=== PATIENT | female | born 1945 | race Caucasian/White ===

== ENCOUNTER 2020-06-03 07:49 | Emergency (ER) | payer OTHER ==
[~2020-06-03 07:49] MED LIST: ASPIRIN EC81 MG PO; LOPRESSOR 25 MG25 MG PO
[2020-06-03 08:41] LABS: HEMOGLOBIN 12.6 gm/dl (12.3-15.3); RED BLOOD COUNT 4.03 M/UL (4.00-5.10); WHITE BLOOD COUNT 11.2 K/UL (4.5-11.0)
[2020-06-03 09:25] LABS: BUN/CREATININE RATIO 19 (0-10)
[2020-06-03] MEDS ORDERED: MORGIDOX100 MG PO (11:38)
[2020-06-03] MEDS ORDERED: FLAGYL500 MG PO (11:38)
== END 2020-06-03 12:34 | disposition home or self-care (01) ==
LOC: ER1 07:49
PROVIDERS: Family Medicine
DX: K57.32 Diverticulitis of large intestine without perforation or abscess without bleeding (principal); N39.0 Urinary tract infection, site not specified; K76.0 Fatty (change of) liver, not elsewhere classified; I10 Essential (primary) hypertension; Z90.49 Acquired absence of other specified parts of digestive tract; Z88.0 Allergy status to penicillin; Z90.711 Acquired absence of uterus with remaining cervical stump
CPT/HCPCS: 80053; 81001; 83690; 85025; 93005; 96365; 96375; 99284; J1885; J2405; Q9967